=== PATIENT | female | born 1950 | race African-American/Black ===

== ENCOUNTER → 2017-02-28 | Day surgery (SDC) | payer BC, OTHER ==
[~2017-02-28] MED LIST: ADVAIR 100-501 EACH IH; ALBUTEROL17 GM INH; AMLODIPINE BESY10 MG PO; ASPIRIN325 M1 PO; BENEFIBER98 GM; CALTRATE 600+D PO; CHLORTHALIDONE PO; COLON HEALTH PO; DOC-Q-LACE100 MG PO; FLAXSEED PO; FUROSEMIDE40 MG PO; GLIPIZIDE METFO PO; HARD NAILS2500 MCG PO; KLOR-CON PO; LOVAZA1 G PO; MULTIVITAMIN1 UDCAP PO; PROVENTIL17 G1 IH; SYMBICORT INH; TRILIPIX135 MG PO; VITAMIN D PO
--- NOTE | ~2017-02-28 | OR ---
Unit #: [id number] #: [id number] Patient: FEMI MANLEY [id number] [address] [place], [place] [address] [id number] O MR#: [id number] NAME: FEMI MANLEY. ROOM: Date of Procedure: 02/28/2017 Admission Date: 02/28/2017 Surgeon: Dickson Webb M.D. : 1950 Attending Physician: Dickson Webb M.D. Primary Care Physician: Elli Bush Aprn OPERATIVE REPORT PROCEDURES PERFORMED Colonoscopy with snare polypectomy; colonoscopy with biopsy. 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 MEDICATIONS Monitored anesthesia. POSTOPERATIVE FINDINGS 1. Previous polypectomy site in the cecum was normal. 2. Polyp, cecum, about 6 mm, could not be retrieved. 3. Polyp, transverse colon, 2 mm, removed using biopsy forceps. 4. Rest of the colon exam again was normal with good prep. PLAN Follow up on the pathology report. Given her history, I would recommend repeat colonoscopy every 3 years. DESCRIPTION OF PROCEDURE The patient was explained of the procedure, risks, and benefits along with the risks and benefits of anesthesia. She was brought to the endoscopy room. Propofol anesthesia was given. Rectal exam was done, which was normal. Colonoscope was lubricated, passed up the rectum, advanced under direct vision all the way to the cecum. Cecum was identified by ileocecal valve and appendiceal orifice. Polyp seen in cecum was snared and sent for histopathology. Previous polypectomy site in the cecum was normal. Small polyp in the transverse colon was removed using biopsy forceps. I retroflexed in the rectum, small hemorrhoids noted. Gently, the scope was pulled out. She tolerated it well. No major complications were seen. Dictated by... Bindu Ram/anshul TD: 03/01/2017 01:47 JOB #: [id number] Unit #: [id number] #: [id number] Patient: FEMI MANLEY OPERATIVE REPORT Page 1 of 1 X Dickson Webb MD PROCEDURE OPERATIVE NOTE
== END | disposition home or self-care (01) ==
LOC: COPS 07:05
DX: Z12.11 Encounter for screening for malignant neoplasm of colon (principal); D12.3 Benign neoplasm of transverse colon; K64.9 Unspecified hemorrhoids; E11.9 Type 2 diabetes mellitus without complications; Z86.010 Personal history of colon polyps; Z90.89 Acquired absence of other organs; J45.909 Unspecified asthma, uncomplicated; Z88.8 Allergy status to other drugs, medicaments and biological substances; Z79.82 Long term (current) use of aspirin; Z79.899 Other long term (current) drug therapy; Z79.51 Long term (current) use of inhaled steroids
CPT/HCPCS: 82947; 88305